=== PATIENT | female | born 1995 | race Caucasian/White ===

== ENCOUNTER 2017-08-26 15:48 | Emergency (ER) | payer OTHER ==
[~2017-08-26] VITALS: Ht 160 cm; Wt 60.0 kg
[2017-08-26] MEDS ORDERED: ONDANSETRON HCL 4MG/2ML VIAL IV ONE (17:00)
[2017-08-26 17:15] LABS: BASOPHILS % 0.1 % (0.0-2.0); HEMATOCRIT. 36.8 % (36.0-48.0); HEMOGLOBIN. 12.8 g/dL (12.0-16.0); LYMPHOCYTES % 8.3 % (20.0-50.0); MEAN CORPUSCULAR HEMOGLOBIN 29.8 pg (28.0-32.0); MEAN CORPUSCULAR VOLUME 85.9 fL (81.0-99.0); MONOCYTES % 3.6 % (2.0-8.0); PLATELET 246 x1000/uL (130-400); RED BLOOD CELL COUNT 4.28 mill/uL (4.2-5.4); RED CELL DISTRIBUTION WIDTH 12.7 % (11.6-14.6)
[2017-08-26 17:19] LABS: CHLORIDE 106 mEq/L (98-107)
[2017-08-26 17:21] LABS: PROTHROMBIN TIME 10.4 sec (9.4-11.6)
[2017-08-26 18:46] LABS: CLARITY URINE CLEAR (CLEAR); COLOR URINE YELLOW (YELLOW); KETONES URINE NEGATIVE (NEGATIVE); LEUKOCYTE ESTERASE URINE NEGATIVE (NEGATIVE); NITRITE URINE NEGATIVE (NEGATIVE); OCCULT BLOOD URINE 1+ (NEGATIVE); PH URINE 8.5 (4.5-8.0); PROTEIN URINE NEGATIVE (NEGATIVE); SPECIFIC GRAVITY URINE 1.013 (1.005-1.030); UROBILINOGEN URINE 0.2 E.U./dL (0.2-1.0)
[2017-08-26 19:45] VITALS: BP 123/74
== END 2017-08-26 20:20 | disposition home or self-care (01) ==
LOC: ER 15:56
DX: N39.0 Urinary tract infection, site not specified (principal); R33.9 Retention of urine, unspecified; R11.2 Nausea with vomiting, unspecified; R79.1 Abnormal coagulation profile
CPT/HCPCS: 36415; 51702; 71045; 80053; 81003; 81025; 83690; 85025; 85610; 96374; 99285; J2405; J7030; Z7610; A4315